=== PATIENT | male | born 1960 | race Hispanic/Latino ===

== ENCOUNTER 2018-11-23 09:49 | Emergency (ER) | payer OTHER ==
[2018-11-23 10:12] VITALS: BP 142/89; PULSE 76; RESP 18; TEMP 98; O2SAT 97
--- NOTE | 2018-11-23 12:03 | C.PDOC ---
History Of Present Illness 57 y/o male presents to the ER complaining of left posterior shoulder pain which has been present for the past 4 days s/p fall 4 days ago. Patient states that he fell backwards on the ground hitting his shoulder. Patient reports that he has decreased ROM. He notes that he did not have any therapy. Denies having weakness and numbness. Time Seen by Provider: 11/23/18 11:06 Chief Complaint (Nursing): Upper Extremity Problem/Injury History Per: Patient History/Exam Limitations: no limitations Onset/Duration Of Symptoms: Days Current Symptoms Are (Timing): Still Present Severity: Moderate Past Medical History Reviewed: Historical Data, Nursing Documentation, Vital Signs Vital Signs: Last Vital Signs Temp 98 F 11/23/18 10:09 Pulse 76 11/23/18 10:09 Resp 18 11/23/18 10:09 BP 142/89 11/23/18 10:09 Pulse Ox 97 11/23/18 10:09 - Medical History PMH: No Chronic Diseases Surgical History: No Surg Hx Family History: States: No Known Family Hx - Social History Hx Alcohol Use: No Hx Substance Use: No - Immunization History Hx Tetanus Toxoid Vaccination: No Hx Influenza Vaccination: No Hx Pneumococcal Vaccination: No Review Of Systems Except As Marked, All Systems Reviewed And Found Negative. Musculoskeletal: Positive for: Shoulder Pain (left shoulder pain) Neurological: Negative for: Weakness, Numbness Physical Exam - Physical Exam Appears: Non-toxic, No Acute Distress Skin: Normal Color, Warm, Dry Head: Atraumatic, Normacephalic Eye(s): bilateral: Normal Inspection Neck: Supple Chest: Symmetrical Cardiovascular: Rhythm Regular Respiratory: Normal Breath Sounds, No Rales, No Rhonchi, No Wheezing Extremity: No Normal ROM (left shoulder: passive ROM to vertical in left shoulder but pain with active ROM to vertical ), No Tenderness (left shoulder), No Swelling (left shoulder) Neurological/Psych: Oriented x3, Normal Speech, Normal Motor, Normal Sensation ED Course And Treatment O2 Sat by Pulse Oximetry: 97 (RA) Pulse Ox Interpretation: Normal - Other Rad L shoulder X-Ray: Interpreted by Me (neg) Medical Decision Making Medical Decision Making: Plan: --Motrin PO --X-Ray-Left Shoulder scapular contusion, no ROM pain pain to ADDuction prob due to STS no torquing shoulder injury to suggest rotator cuff injury MRI as opt PRN Disposition Doctor Will See Patient In The: Office Counseled Patient/Family Regarding: Studies Performed, Diagnosis - Disposition Disposition: HOME/ ROUTINE Forms: [facility] (Kinyarwanda) - Clinical Impression Clinical Impression: Contusion of shoulder, left - Scribe Statement The provider has reviewed the documentation as recorded by the Jenniferibe Megan Dick Provider Attestation: All medical record entries made by the Jenniferibliberty were at my direction and personally dictated by me. I have reviewed the chart and agree that the record accurately reflects my personal performance of the history, physical exam, medical decision making, and the department course for this patient. I have also personally directed, reviewed, and agree with the discharge instructions and disposition.
--- NOTE | 2018-11-23 12:55 | RAD ---
Date of service: 11/23/2018 PROCEDURE: Radiographs of the left shoulder HISTORY: fall contusion to posterior shoulder 4 days ago COMPARISON: No prior. FINDINGS: BONES: Bone alignment and mineralization are normal. There is no acute displaced fracture or bone destruction. There is complete loss of subacromion space with superior displacement of the humeral head which could be related to chronic rotator cuff injury. 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 The glenohumeral and acromioclavicular joints are preserved. No significant degenerative osteoarthrosis. SOFT TISSUES: Normal. OTHER FINDINGS: None. IMPRESSION: No acute displaced fracture or dislocation.
== END 2018-11-23 12:21 | disposition home or self-care (01) ==
LOC: C.ER 09:49
DX: S40.012A Contusion of left shoulder, initial encounter (principal); W19.XXXA Unspecified fall, initial encounter